=== PATIENT | male | born 1930 | race Caucasian/White ===

== ENCOUNTER 2017-01-17 10:59 | Emergency (ER) | payer MEDICARE, BC ==
--- NOTE | ~2017-01-17 | CT101 ---
[facility] A Service of [facility] RADIOLOGY TEXT RESULTS PATIENT: EDGAR DAVIS LOCATION: [facility] : [birth year] UNIT #: [id number] AGE: [address]: Janene Ortiz MD SEX: M ORDER DR: [id number] [facility] [address] [place], [place] [address] [id number] E MR#: [id number] Acc #: [id number] NAME: EDGAR DAVIS. : 1930 SEX: M STUDY DATE/TIME: 01/17/2017 11:55 UNIT: [facility] ROOM: STUDY DESCRIPTION: CT Maxillofacial Area Wo Cont Attending Physician: Janene Ortiz M.D. Ordering Physician: Janene Ortiz M.D. Primary Care Physician: Hardik Erickson M.D. MEDICAL IMAGING REPORT This report is preliminary unless electronic signature is present EXAM CT maxillofacial bones. HISTORY Fell this morning, possible hit to head, confusion. TECHNIQUE Axial images performed through the maxillofacial bones without contrast. This CT exam was performed with one or more of the following radiation dose reduction techniques: automatic exposure control, adjustment of mA and/or kV according to patient size, and iterative reconstruction. FINDINGS No evidence of orbital, facial or mandibular fracture. Dentition appears in gross repair. Minimal ethmoid sinus mucosal thickening. Mucous retention cyst right frontal sinus. Postsurgical changes are seen within both globes from apparent scleral buccal procedure. No significant facial soft tissue swelling or edema identified. Visualized cervical spine demonstrates mild arthritic change atlantoaxial joint. Skull base unremarkable. IMPRESSION 1. No acute abnormality of the maxillofacial region. 2. Minimal ethmoid and right frontal sinus disease with probable right frontal mucous retention cyst. Dictated by... Rakan Don M.D. THIS IS AN ELECTRONICALLY VERIFIED REPORT Rakan Don M.D. at 01/18/2017 9:12 PM SHEN/kati [facility] A Service of [facility] RADIOLOGY TEXT RESULTS PATIENT: EDGAR DAVIS LOCATION: [facility] : [birth year] UNIT #: [id number] AGE: [address]: Janene Ortiz MD SEX: M ORDER DR: TD: 01/18/2017 00:05 JOB #: [id number] MEDICAL IMAGING REPORT Page 1 of 1 COPY
--- NOTE | ~2017-01-17 | CT4 ---
[facility] A Service of [facility] RADIOLOGY TEXT RESULTS PATIENT: EDGAR DAVIS LOCATION: [facility] : [birth year] UNIT #: [id number] AGE: [address]: Janene Ortiz MD SEX: M ORDER DR: [id number] [facility] [address] [place], [place] [address] [id number] E MR#: [id number] Acc #: [id number] NAME: EDGAR DAVIS. : 1930 SEX: M STUDY DATE/TIME: 01/17/2017 16:10 UNIT: [facility] ROOM: STUDY DESCRIPTION: CT Abd and Pelv Wo Cont Attending Physician: Janene Ortiz M.D. Ordering Physician: Janene Ortiz M.D. Primary Care Physician: Hardik Erickson M.D. MEDICAL IMAGING REPORT This report is preliminary unless electronic signature is present EXAM CT of the abdomen and pelvis without contrast. INDICATION Fall today. Abdominal pain. TECHNIQUE CT of the abdomen and pelvis was performed without contrast. Coronal and sagittal reformatted images were obtained. This CT exam was performed with one or more of the following radiation dose reduction techniques: automatic exposure control, adjustment of mA and/or kV according to patient size, and iterative reconstruction. COMPARISON No comparisons. FINDINGS There is curvilinear scarring or atelectasis in the lung bases. The liver is unremarkable. Cholecystectomy. Spleen is unremarkable. The left kidney is unremarkable. There are scattered hyperdensities in the right kidney which probably represent hyperdense cyst. The adrenal glands are unremarkable. Pancreas is unremarkable. PELVIS: Prostatomegaly. Multiple urinary bladder diverticula. The appendix is normal. Remainder of the pelvis is unremarkable. The bone windows demonstrate degenerative changes lumbar spine. IMPRESSION No acute intraabdominal or pelvic abnormality. [facility] A Service [facility] RADIOLOGY TEXT RESULTS PATIENT: EDGAR DAVIS LOCATION: [facility] : [birth year] UNIT #: [id number] AGE: [address]: Janene Ortiz MD SEX: M ORDER DR: Dictated by... Fco Don M.D. THIS IS AN ELECTRONICALLY VERIFIED REPORT Fco Don M.D. at 01/20/2017 7:34 AM CALVIN/kati TD: 01/17/2017 23:00 JOB #: [id number] MEDICAL IMAGING REPORT Page 1 of 1 COPY
--- NOTE | ~2017-01-17 | CT71 ---
[facility] A Service of [facility] RADIOLOGY TEXT RESULTS PATIENT: EDGAR DAVIS LOCATION: [facility] : [birth year] UNIT #: [id number] AGE: [address]: Janene Ortiz MD SEX: M ORDER DR: [id number] [facility] [address] [place], [place] [address] [id number] E MR#: [id number] Acc #: [id number] NAME: EDGAR DAVIS. : 1930 SEX: M STUDY DATE/TIME: 01/17/2017 16:05 UNIT: [facility] ROOM: STUDY DESCRIPTION: CT Head Wo Contrast Attending Physician: Janene Ortiz M.D. Ordering Physician: Janene Ortiz M.D. Primary Care Physician: Hardik Erickson M.D. MEDICAL IMAGING REPORT This report is preliminary unless electronic signature is present EXAM CT brain without contrast media, 01/17/2017. COMPARISON 11/13/2005 HISTORY Fell this morning, hit head, confusion. TECHNIQUE Axial imaging of the brain was performed without contrast and compared to the studies of October 2005. This CT exam was performed with one or more of the following radiation dose reduction techniques: automatic exposure control, adjustment of mA and/or kV according to patient size, and iterative reconstruction. There has been progression of the atrophic changes with further increase in ventricular size. Further increase in small vessel deep white matter ischemic changes in the periventricular region. There are no mass lesions. There is no mass effect, hemorrhage or edema. There are atherosclerotic calcifications of the carotid siphons. No intra or extraaxial fluid collections are seen. Bone windows are reviewed. The calvaria is intact. Chronic right ethmoid sinus disease and mild chronic left frontal sinus disease. CONCLUSION 1. Progression of the atrophic changes since 11/13/2005, now with marked atrophy and extensive deep white matter chronic ischemic changes. No acute intracranial findings. 2. Chronic ethmoid and chronic left frontal sinus disease. Dictated by... Rocael Caro M.D. [facility] A Service of [facility] RADIOLOGY TEXT RESULTS PATIENT: EDGAR DAVIS [id number] : [birth year] UNIT #: [id number] AGE: [address]: Janene Ortiz MD SEX: M ORDER DR: THIS IS AN ELECTRONICALLY VERIFIED REPORT Rocael Caro M.D. at 01/18/2017 9:32 AM Elsie TD: 01/17/2017 23:02 JOB #: [id number] MEDICAL IMAGING REPORT Page 1 of 1 COPY
--- NOTE | ~2017-01-17 | CR72 ---
[facility] A Service of [facility] RADIOLOGY TEXT RESULTS PATIENT: EDGAR DAVIS LOCATION: [facility] : [birth year] UNIT #: [id number] AGE: [address]: Janene Ortiz MD SEX: M ORDER DR: [id number] [facility] [address] [place], [place] [address] [id number] E MR#: [id number] Acc #: [id number] NAME: EDGAR DAVIS. : 1930 SEX: M STUDY DATE/TIME: 01/17/2017 12:19 UNIT: [facility] ROOM: STUDY DESCRIPTION: CR Chest Single View Portable Attending Physician: Janene Ortiz M.D. Ordering Physician: Janene Ortiz M.D. Primary Care Physician: Hardik Erickson M.D. MEDICAL IMAGING REPORT This report is preliminary unless electronic signature is present EXAM Portable chest 01/17 COMPARISON 08/19/2012. HISTORY Fell this last evening with left-sided chest pain. FINDINGS AP portable view is obtained. Heart size is stable. Vascular markings remain normal. There seems to be some volume loss in the right base. The visualized portions of the left ribs appear negative. CONCLUSION Stable chest. No change from studies of 2012. Dictated by... Rocael Caro M.D. THIS IS AN ELECTRONICALLY VERIFIED REPORT Rocael Caro M.D. at 01/18/2017 9:32 AM SHEA/tate TD: 01/17/2017 15:41 JOB #: [id number] MEDICAL IMAGING REPORT Page 1 of 1 COPY
[~2017-01-17 10:59] MED LIST: ACCUPRIL; ASPIRIN EC81 M1 PO; CARTIA XT; COUMADIN; COUMADIN PO; DILTIAZEM 24HR180 M2 PO; LIPITOR PO; TOPROL XL PO
[2017-01-17 12:02] LABS: BASOPHIL% 0.2 % (0-2.5); EOSINOPHIL# 0.3 X10e3 (0-0.7); EOSINOPHIL% 3.8 % (0.0-7.0); HEMATOCRIT 40.3 % (38.0-50.0); HEMOGLOBIN 13.5 gm/dL (13.0-16.0); LYMPHOCYTE# 2.3 X10e3 (1.0-3.5); LYMPHOCYTE% 29.7 % (17.0-45.0); MEAN CELL VOLUME 99.9 FL (83-96); MEAN CORPUSCULAR HEMOGLOBIN 33.4 PG (28-34); MEAN CORPUSCULAR HGB CONC 33.4 g/dL (30-36); MEAN PLATELET VOLUME 10.6 FL (6.5-11.5); MONOCYTE# 0.6 X10e3 (0-1.0); MONOCYTE% 7.7 % (3.0-12.0); NEUTROPHIL# 4.6 X10e3 (1.5-7.1); NEUTROPHIL% 58.6 % (40-75); PLATELET COUNT 142 X10e3 (140-420); RED BLOOD COUNT 4.03 X10e (3.90-5.60); RED CELL DISTRIBUTION WIDTH 13.6 % (11.0-15.5); WHITE BLOOD COUNT 7.8 X10e3 (4.0-10.5)
[2017-01-17 12:06] LABS: DIFF IND NO
[2017-01-17 12:21] LABS: BILIRUBIN, DIRECT 0.2 mg/dL (0.0-0.2); BILIRUBIN,INDIRECT 0.8 mg/dL (0.0-0.9); BUN/CREATININE RATIO 14.61; CALCIUM SERUM 9.1 mg/dL (8.4-10.2); CREATININE SERUM 1.3 mg/dL (0.6-1.4); GLOM FILT RATE Estimated 48.7 mL/min (>60); POTASSIUM 4.3 mmol/L (3.5-5.1); PROTEIN TOTAL SERUM 7.1 g/dL (6.0-8.3)
[2017-01-17 14:42] LABS: URINE SOURCE CLEAN CATCH
[2017-01-17 14:55] LABS: URINE APPEARANCE CLEAR; URINE BILIRUBIN NEG (NEG); URINE BLOOD NEG (NEG); URINE COLOR YELLOW; URINE GLUCOSE NEG (NEG); URINE KETONE NEG (NEG); URINE LEUKOCYTE ESTERASE NEG (NEG); URINE NITRATE NEG (NEG); URINE PROTEIN NEG (NEG); URINE SPECIFIC GRAVITY 1.011 (1.003-1.035); URINE UROBILINOGEN 0.2 MG/DL (NEG)
[2017-01-17 15:00] LABS: CULTURE INDICATED? NO
== END 2017-01-17 17:47 | disposition home or self-care (01) ==
LOC: CED 10:59
PROVIDERS: Emergency Medicine
DX: S41.112A Laceration without foreign body of left upper arm, initial encounter (principal); S20.212A Contusion of left front wall of thorax, initial encounter; W01.0XXA Fall on same level from slipping, tripping and stumbling without subsequent striking against object, initial encounter; Y92.009 Unspecified place in unspecified non-institutional (private) residence as the place of occurrence of the external cause; Z90.49 Acquired absence of other specified parts of digestive tract; Z98.890 Other specified postprocedural states
CPT/HCPCS: 36415; 70450; 70486; 71010; 74176; 80048; 80076; 81003; 85025; 99284